=== PATIENT | female | born 1985 | race Two or more races ===

== ENCOUNTER 2021-10-08 15:27 | Emergency (ER) | payer OTHER ==
[~2021-10-08] VITALS: Ht 152.4 cm; Wt 62.6 kg
[2021-10-08 15:29] VITALS: BP 137/89
[2021-10-08] MEDS ORDERED: AMOX-999 PO (17:04)
[2021-10-08] MEDS ORDERED: NAPR-54 PO (17:04)
--- NOTE | 2021-10-08 17:21 | NUR ---
Patient discharged with v/s stable. Written and verbal after care instructions ABOUT PHARYNGITIS given and explained. Patient alert, oriented and verbalized understanding of instructions. Ambulatory with steady gait. All questions addressed prior to discharge. ID band removed. Patient advised to follow up with PMD. Rx of NAPROXEN AND AUGMENTIN 500-125 TAB given. Patient educated on indication of medication including possible reaction and side effects. Opportunity to ask questions provided and answered. PT SEEN AND TREATED BY TERI ANGELES, NO NURSING INTERVENTIONS PROVIDED
== END 2021-10-08 17:21 | disposition home or self-care (01) ==
LOC: MED 15:27
DX: J02.9 Acute pharyngitis, unspecified (principal); R51.9 Headache, unspecified
CPT/HCPCS: 99283

== ENCOUNTER 2023-08-27 11:57 | Emergency (ER) | payer OTHER ==
[~2023-08-27] VITALS: Ht 152.4 cm; Wt 72.6 kg
[~2023-08-27 11:57] MED LIST: AMOX-999 PO; NAPR-54 PO
[2023-08-27 12:43] VITALS: BP 141/90; PULSE 91; RESP 19; TEMP 97.7; O2SAT 100
[2023-08-27] MEDS ORDERED: PROM118S5 PO (13:48)
[2023-08-27] MEDS ORDERED: AMOX1TAB8 PO (13:48)
[2023-08-27] MEDS ORDERED: METH4TAB1 PO (13:48)
[2023-08-27] MEDS ORDERED: ALBU0.0912 IH (13:49)
[2023-08-27 14:37] VITALS: BP 141/90; PULSE 91; RESP 19; TEMP 97.7; O2SAT 100
== END 2023-08-27 14:37 | disposition home or self-care (01) ==
LOC: MED 11:57
DX: J20.9 Acute bronchitis, unspecified (principal); H66.92 Otitis media, unspecified, left ear; R51.9 Headache, unspecified; Z79.899 Other long term (current) drug therapy
CPT/HCPCS: 71045; 99283

== ENCOUNTER 2023-09-20 13:51 | Emergency (ER) | payer OTHER ==
[~2023-09-20] VITALS: Ht 152.4 cm; Wt 68.0 kg
[~2023-09-20 13:51] MED LIST changes: +ALBU0.0912 IH; +AMOX1TAB8 PO; +METH4TAB1 PO; +PROM118S5 PO
[2023-09-20 13:54] VITALS: BP 139/88; PULSE 110; RESP 18; TEMP 97.4; O2SAT 97
[2023-09-20] MEDS: DEXAMETHASONE 4 MG/ML VIAL PO ONE (14:59)
[2023-09-20] MEDS: NACL 0.9% 1,000 ML IV ONE (14:59)
[2023-09-20 15:00] LABS: BASOPHILS # (AUTO) 0.1 K/uL (0.00-0.22); BASOPHILS % (AUTO) 0.5 % (0.0-2.0); EOSINOPHILS # (AUTO) 0.3 K/uL (0-0.4); EOSINOPHILS % (AUTO) 2.3 % (0.0-4.0); HEMATOCRIT 41.1 % (36-48); LYMPHOCYTES # (AUTO) 1.5 K/uL (2.5-16.5); MEAN CORPUSCULAR HEMOGLOBIN 29 pg (27-31); MEAN CORPUSCULAR HGB CONC 34 g/dL (33-37); MEAN CORPUSCULAR VOLUME 85.4 fL (80-94); MONOCYTES # (AUTO) 0.8 K/uL (0.8-1.0); MONOCYTES % (AUTO) 6.2 % (1.7-9.3); NEUTROPHILS # (AUTO) 9.8 K/uL (1.8-7.7); PLATELET COUNT (AUTO) 356 K/uL (140-450); RED BLOOD CELL COUNT(AUTO) 4.82 MIL/uL (4.20-5.40); RED CELL DISTRIBUTION WIDTH 13.9 % (11.6-13.7); WHITE BLOOD COUNT (AUTO) 12.4 K/uL (4.8-10.8)
[2023-09-20] MEDS: ONDANSETRON 4 MG ODT PO ONE (15:04)
[2023-09-20] MEDS: ACETAMINOPHEN EXTRA STRENGTH 500 MG TAB PO ONE (15:04)
[2023-09-20 15:16] LABS: ANION GAP 14.5 (8-16); CALCIUM 9.4 mg/dL (8.5-10.1); CARBON DIOXIDE 27.1 mmol/L (21-32); CREATININE 0.6 mg/dL (0.6-1.3); POTASSIUM 3.6 mmol/L (3.5-5.1)
[2023-09-20 15:39] VITALS: O2SAT 97
[2023-09-20 15:49] LABS: FLU A ANTIGEN negative (NEGATIVE); FLU B ANTIGEN negative (NEGATIVE)
[2023-09-20] MEDS ORDERED: AMOX500C25 PO (16:02)
[2023-09-20] MEDS: KETOROLAC 30 MG/ML VIAL IVP ONE (16:21)
[2023-09-20] MEDS ORDERED: ACET-10509 PO (17:11)
[2023-09-20] MEDS ORDERED: IBUP-1842 PO (17:13)
== END 2023-09-20 17:19 | disposition home or self-care (01) ==
LOC: MED 13:51
DX: J02.0 Streptococcal pharyngitis (principal); R05.9 Cough, unspecified; M79.18 Myalgia, other site; Z20.822 Contact with and (suspected) exposure to COVID-19; Z79.899 Other long term (current) drug therapy
CPT/HCPCS: 36415; 71045; 80048; 81025; 85025; 87081; 87426; 87804; 96361; 96374; 99284; J1100; J1885; J7030; Q0092; Q0162